=== PATIENT | male | born 1960 | race Caucasian/White ===

== ENCOUNTER 2018-07-20 06:53 | Emergency (ER) | payer OTHER, SELFPAY ==
[2018-07-20 07:03] VITALS: BP 170/94; PULSE 73; RESP 18; TEMP 36.3; O2SAT 99; BMI 28.8
--- NOTE | 2018-07-20 07:07 | ED_ITS ---
HPI - URI/Sore Throat General Chief Complaint: Upper Respiratory Symptoms Stated Complaint: states spitting up blood Time Seen by Provider: 07/20/18 07:00 Source: patient Mode of arrival: ambulatory Limitations: no limitations History of Present Illness HPI Narrative: 58-year-old otherwise healthy male here for evaluation of approximately 1 week of a dry cough. He states that yesterday he started having blood tinged sputum. He states that everything started approximately 1 week ago with a bilateral conjunctivitis. He was told by his doctor that it was ?viral ?was not placed on any antibiotics. Has never had any sinus congestion or ear pain. States that his was diagnosed with a ?bacterial infection ?in her lungs. He has not tried anything for the cough except for Sudafed. He is on a antihistamine. No chest pain. No recent car rides. Not on anticoagulation. No lower extremity swelling. Related Data Home Medications Medication Instructions Recorded Confirmed pseudoephedrine HCl [Sudafed] 30 mg PO Q4-6H PRN 07/20/18 07/20/18 Previous Rx's Medication Instructions Recorded hydrocodone-acetaminophen [[place]] 1 tab PO Q6HP PRN #10 tab 10/07/17 ondansetron [Zofran ODT] 4 mg SUBLINGUAL Q6HP PRN #10 odt 10/07/17 tamsulosin [Flomax] 0.4 mg PO QDAY #7 cap 10/07/17 azithromycin See Label Instructions .ROUTE 07/20/18 .COMPLEX #6 tab codeine-guaifenesin [Guaifenesin 10 ml PO Q4-6H PRN #118 ml 07/20/18 AC] Allergies Allergy/AdvReac Type Severity Reaction Status Date / Time No Known Allergies Allergy Uncoded 03/05/18 12:43 Review of Systems Constitutional Denies fatigue, Denies fever(s) and Denies headache(s) ENT Ears, Nose, Mouth, and Throat: Denies headache(s) Cardiovascular Denies chest pain and Denies dyspnea Respiratory Reports change in phlegm color, Reports chest congestion, Reports cough, Denies pain on inspiration, Denies dyspnea and Denies wheezing Gastrointestinal Gastrointestinal: Denies abdominal pain, Denies melena, Denies hematochezia, Denies change in stool character, Denies coffee ground emesis, Denies constipation, Denies diarrhea, Denies nausea and Denies vomiting Musculoskeletal Denies myalgias and Denies arthralgias Integumentary/Breasts Denies lesions and Denies rash Neurologic Denies headache(s) Endocrine Denies fatigue Hematologic/Lymphatic Denies easy bleeding and Denies easy bruising Allergic/Immunologic Denies wheezing PFSH Medical History BPH (benign prostatic hyperplasia) (Acute) Surgical History No pertinent past surgical history (Acute) Social History Smoking Status: Never smoker Exam Initial Vital Signs Initial Vital Signs: Vital Signs Temperature 97.3 F L 07/20/18 07:03 Pulse Rate 73 07/20/18 07:03 Respiratory Rate 18 07/20/18 07:03 Blood Pressure 170/94 H 07/20/18 07:03 Pulse Oximetry 99 07/20/18 07:03 Const General: cooperative, healthy appearing, comfortable, well developed, well groomed and No acute distress Orientation: alert, awake and oriented x3 HENMT Head: normal to inspection and normocephalic Chest Chest: normal inspection of the chest and normal palpation of entire chest wall Resp Effort & Inspection: normal respiratory effort and able to speak in complete sentences Cardio Rate: regular rate Rhythm: regular rhythm Heart Sounds: no murmurs Pulses: radial pulses present GI Inspection: non-distended Palpation: soft Skin Lesions: no lesions Rashes: no rashes Neuro General: alert, awake and oriented x3 Extrem General: capillary refill normal Psych Appearance: grossly normal and well kempt Course Orders Ordered: ED Orders 07/20/18 07:08 XR chest 1V Stat Vital Signs - 8 hr 07/20/18 07:03 Temperature 97.3 F L Pulse Rate 73 Respiratory Rate 18 Blood Pressure 170/94 H Pulse Oximetry 99 MDM - URI/Sore Throat Imaging Data Chest x-ray: Attestation: I personally reviewed and interpreted this imaging study as follows: My impression: No acute abnormality Normal size heart No pneumothorax MDM Narrative Medical decision making narrative: Patient clearly with respiratory symptoms. Low suspicion for PE. Is not hypoxic. He is not tachypneic. Has normal lung exam. Chest x-ray is negative. I suspect that the blood tinged sputum is from the irritation from all of the coughing. He has been on decongestants for approximately 1 week. Has not taken any cough suppressants. Plan will be is to discharge the patient home with a prescription for Robitussin with codeine. He was encouraged to take this for his symptoms for the next several days to see if this does not help. He he was also encouraged to continue his decongestants at home. Will also send home with a prescription for azithromycin. He was informed that if his symptoms do not improve in the next couple days or if his symptoms worsen that he could start taking this antibiotic. Patient was given return precautions. He expressed understanding and agreement with plan. Discharge Plan Departure Patient Disposition: Home Clinical Impression: Cough Instructions: Cough (Alternative Therapy), Cough Activity Restrictions/Additional Instructions: Recommend that you continue to take your antihistamine that you have been taking like we discussed. Also recommend that you start with the anti cough medicine that you were given today for the next several days to see if this does not improve your symptoms. If your symptoms do not improve or if they worsen the next couple days then fill the prescription for the antibiotics and start taking them as directed. Return to the emergency department for any new or worsening symptoms Prescriptions: New azithromycin 250 mg tablet See Label Instructions .ROUTE .COMPLEX Qty: 6 RF: 0 codeine-guaifenesin [Guaifenesin AC] 10-100 mg/5 mL liquid 10 ml PO Q4-6H PRN (Reason: cough) Qty: 118 RF: 0 No Action hydrocodone-acetaminophen [[place]] 5 MG/325 MG tablet 1 tab PO Q6HP PRNQty: 10 RF: 0 tamsulosin [Flomax] 0.4 MG capsule,extended release 24hr 0.4 mg PO QDAY Qty: 7 RF: 0 ondansetron [Zofran ODT] 4 MG tablet,disintegrating 4 mg Sublingual Q6HP PRNQty: 10 RF: 0 pseudoephedrine HCl [Sudafed] 30 mg Tablet 30 mg PO Q4-6H PRN (Reason: Congestion) RF: 0
--- NOTE | 2018-07-20 07:08 | DI.RAD.S_ITS ---
PROCEDURE: XR CHEST 1V INDICATIONS: spitting up blood TECHNIQUE: One view of the chest was acquired. COMPARISON: None. FINDINGS: Surgical changes and devices: None. Lungs and pleura: No pleural effusions or pneumothorax. Lungs are clear. Mediastinum: Mediastinal contours appear normal. Heart size is normal. Bones and chest wall: No suspicious bony lesions. Overlying soft tissues appear unremarkable. IMPRESSION: No acute cardiopulmonary pathology. Dictated by: Valentín Cordoba M.D. on 07/20/2018 at 9:33 Approved by: Valentín Cordoba M.D. on 07/20/2018 at 9:33
== END 2018-07-20 08:02 | disposition home or self-care (01) ==
PROVIDERS: Emergency Provider Emergency Medicine
DX: R05 Cough (principal)
CPT/HCPCS: 71045; 99282; 99283

== ENCOUNTER 2020-04-06 19:27 | Emergency (ER) | payer OTHER, SELFPAY ==
[2020-04-06 19:36] VITALS: BP 185/101; PULSE 84; RESP 16; TEMP 36.7; O2SAT 97; BMI 29.6
--- NOTE | 2020-04-06 19:37 | DI.RAD.S_ITS ---
PROCEDURE: XR FOOT RT MIN 3V INDICATIONS: fall w/ pain / deformity TECHNIQUE: 3 views of the foot were acquired. COMPARISON: None. FINDINGS: Bones: Mildly displaced fracture of the proximal 5th metatarsal with articular surface extension to the 5th tarsometatarsal joint. Soft tissues: No tibiotalar joint effusion. Achilles tendon appears normal. IMPRESSION: Proximal 5th metatarsal fracture. Dictated by: Greg Tracy M.D. on 04/06/2020 at 19:52 Approved by: Greg Tracy M.D. on 04/06/2020 at 19:53
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
[2020-04-06] MEDS: ACETAMINOPHEN 325 MG TABLET PO (19:50)
[2020-04-06] MEDS: IBUPROFEN 400 MG TABLET PO (19:50)
[2020-04-06 20:49] VITALS: BP 166/91; PULSE 98; RESP 14; O2SAT 98
== END 2020-04-06 20:52 | disposition home or self-care (01) ==
PROVIDERS: Emergency Provider Emergency Medicine
DX: S92.354A Nondisplaced fracture of fifth metatarsal bone, right foot, initial encounter for closed fracture (principal); V18.0XXA Pedal cycle driver injured in noncollision transport accident in nontraffic accident, initial encounter
CPT/HCPCS: 73630; 99283

== ENCOUNTER → 2021-08-09 09:10 | Outpatient (CLI) | payer OTHER, SELFPAY ==
[2021-08-09 11:53] LABS: COVID19 -Nasal RAPID Negative (Negative)
== END ==
PROVIDERS: Visit Provider Surgery
DX: Z01.812 Encounter for preprocedural laboratory examination (principal); Z20.822 Contact with and (suspected) exposure to COVID-19
CPT/HCPCS: 87635; C9803

== ENCOUNTER 2021-08-10 12:58 | Day surgery (SDC) | payer OTHER, SELFPAY ==
[2021-08-10] MEDS: LACTATED RINGERS 1,000 ML 200 ML IV (13:41)
[2021-08-10 13:43] VITALS: BP 157/88; PULSE 72; RESP 16; TEMP 36.5; O2SAT 100; BMI 29.5
--- NOTE | 2021-08-10 14:18 | PM.HP.1 ---
History of Present Illness History of Present Illness Date Patient Seen: 08/10/21 Time Patient Seen: 14:18 Chief complaint: SDC Narrative: The patient presents for colorectal sreening. Previous colonoscopy 10 years ago normal. No personal or family history of colon cancer. On further history denies any recent gastrointestinal symptoms. No nausea, vomiting, abdominal pain, loss of appetite, unexplained weight loss, change in bowel habits, diarrhea, constipation, melena, hematochezia, or bright red blood per rectum. Patient History Medical History BPH (benign prostatic hyperplasia) Surgical History No pertinent past surgical history Family & Social History Social History: household members spouse Tobacco & Substance use: Smoking Status Never smoker alcohol intake never alcohol intake frequency other Substance Use Type does not use Meds Home Medications and Allergies Home Medications Medication Instructions Recorded Confirmed Type sodium,potassium,mag sulfates 17.5 See Rx Instructions PO .COMPLEX 07/03/21 08/10/21 Rx gram-3.13 gram-1.6 gram oral soln #354 ml (Suprep Bowel Prep Kit) losartan 50 mg tablet 50 mg PO DAILY 08/10/21 08/10/21 History metoprolol succinate 50 mg 50 mg PO DAILY 08/10/21 08/10/21 History tablet,extended release 24 hr Allergies Allergy/AdvReac Type Severity Reaction Status Date / Time No Known Allergies Allergy Uncoded 08/10/21 13:59 Review of Systems Review of Systems ROS: Yes All systems reviewed with the patient and are negative except as otherwise documented Exam Vital Signs (past 8 hours): - 08/10/21 13:43 Temperature 97.7 F Pulse Rate 72 Respiratory Rate 16 Blood Pressure 157/88 H Pulse Oximetry 100 Oxygen Delivery Method Room Air Narrative Exam Narrative: Constitutional-he is oriented to person, place and time. No apparent distress Cardiovascular- regular rate, no peripheral edema Pulmonary-unlabored respiratory effort, no audible wheezing Abdominal-soft, non-tender, non-distended Musculoskeletal-no cyanosis or clubbing Neurological-nonfocal, normal strength throughout Skin-warm and dry Assessment & Plan Assessment & Plan narrative: The patient requires colorectal screening and colonoscopy is recommended. Technical details were discussed. Risks, benefits, alternatives explained. Risks including but not limited to myocardial infarction, aspiration, bleeding, pain, missed lesion, incomplete examination, need for further radiographic studies, colonic perforation, and need for major abdominal surgery were discussed. All questions were answered to their satisfaction, and they are in agreement with this plan. Time Spent With Patient Critical Care time: I spent a total of [] minutes of critical care time on this patient's care today; this time is exclusive of procedural time.
[2021-08-10] MEDS: MIDAZOLAM 5 MG/5 ML VIAL IV (14:26)
[2021-08-10] MEDS: fentaNYL 250 MCG/5 ML INJ IV (14:26)
--- NOTE | 2021-08-10 14:42 | PM.OP.ENDO ---
Operative Date/Time/Diagnoses Date of procedure: 08/10/21 Time of procedure: 14:42 Pre-op diagnosis: screening colonoscopy Post-op diagnosis: same Procedure & Clinicians Study performed: Colonoscopy Same procedure as scheduled: Yes Indications: Screening Surgeon: Remington Valverde Procedure Notes Procedure in detail: Medications: Conscious sedation using 5mg IV midazolam and 200mcg IV of fentanyl The history and physical was performed/updated and the patient is ASA class is 2. The procedure was discussed in detail with the patient. Potential risks complications including infection, bleeding, missed diagnosis, perforation, need for surgery, and were explained. Their questions were answered and informed consent was obtained. Patient was brought to the procedure room and placed standard monitoring equipment. The patient's vital signs were monitored continuously throughout the entire procedure. Prior to starting time-out was performed. The patient was placed in the left lateral recumbent position. Procedural sedation was administered. Examination began with a thorough inspection of the perianal area there was no evidence of fissures, fistulae, external hemorrhoids or cutaneous malignancy. The colonoscopy scope was then placed into the anal canal and was advanced to the cecum, which was identified by the ileocecal valve, the appendiceal orifice and the confluence of the taenia. The scope was then slowly withdrawn examining colon thoroughly in all directions, irrigating it of any residual stool. FINDINGS 1. No masses or polyps 2. Sigmoid diverticulosis 3. Grade 1 internal The patient tolerated the procedure well. They will be discharged once criteria are met. The prep was of good/excellent quality. The withdrawl time was 6 minutes. The sedation time was 18 minutes. Specimen(s): none sent Complications: none Impression: Normal colonoscopy Post-procedure Recommendations: Colonscopy in 10 years Disposition: same day surgery
[2021-08-10 14:43] VITALS: BP 160/72; PULSE 71; RESP 10; TEMP 36.8; O2SAT 96
--- NOTE | 2021-08-10 14:47 | SUR.PHASEI ---
Received to PACU after colonoscopy with sedation. Report from MELLISSA Moore.
[2021-08-10 14:48] VITALS: BP 139/59; PULSE 71; RESP 10; O2SAT 96
[2021-08-10 14:53] VITALS: BP 122/56; PULSE 67; RESP 10; O2SAT 98
[2021-08-10 14:58] VITALS: BP 132/91; PULSE 83; RESP 12; O2SAT 98
[2021-08-10 15:00] VITALS: BP 156/80; PULSE 70; RESP 12; TEMP 36.8; O2SAT 98
== END 2021-08-10 15:14 | disposition home or self-care (01) ==
PROVIDERS: Referring Provider Surgery; Visit Provider Surgery
PROC: 0DJD8ZZ Inspection of Lower Intestinal Tract, Via Natural or Artificial Opening Endoscopic (ICD-10-PCS; CPT 45378; principal; 2021-08-10 14:30)
DX: Z12.11 Encounter for screening for malignant neoplasm of colon (principal); K57.30 Diverticulosis of large intestine without perforation or abscess without bleeding; K64.0 First degree hemorrhoids; N40.0 Benign prostatic hyperplasia without lower urinary tract symptoms
CPT/HCPCS: G0121; 99152; J2250; J3010

== ENCOUNTER 2022-04-20 19:34 | Emergency (ER) | payer OTHER, SELFPAY ==
[2022-04-20 19:42] VITALS: BP 161/94; PULSE 74; RESP 18; TEMP 35.9; O2SAT 97; BMI 29.6
--- NOTE | 2022-04-20 21:30 | ED.GENADULT ---
HPI - General Adult General Chief complaint: Urogenital-Male Stated complaint: Possible kidney stones/ ABD pain Time Seen by Provider: 04/20/22 21:26 Source: patient Mode of arrival: Ambulatory Limitations: no limitations History of Present Illness HPI narrative: 62-year-old male who has had a kidney stone in the past who is here for evaluation of right-sided flank discomfort. Symptoms have been going on for less than 24 hours. They are intermittent in nature. He denies any urinary symptoms. No fevers. No nausea vomiting. No change in bowel habits. He states that his symptoms to feel somewhat similar to when he had the last kidney stone although certainly not as bad. He does think that the pain gets worse when he moves and touches the area. There is no rash over the area. No specific trauma. Related Data Home Medications Medication Instructions Recorded Confirmed losartan 50 mg tablet 50 mg PO DAILY 08/10/21 08/10/21 metoprolol succinate 50 mg 50 mg PO DAILY 08/10/21 08/10/21 tablet,extended release 24 hr Previous Rx's Medication Instructions Recorded sodium,potassium,mag sulfates 17.5 See Rx Instructions PO .COMPLEX 07/03/21 gram-3.13 gram-1.6 gram oral soln #354 ml (Suprep Bowel Prep Kit) Allergies Allergy/AdvReac Type Severity Reaction Status Date / Time No Known Allergies Allergy Uncoded 08/10/21 13:59 Review of Systems Constitutional Constitutional: Denies fever(s) Gastrointestinal Gastrointestinal: Reports system reviewed and no additional complaints, except as documented Genitourinary Genitourinary: Reports system reviewed and no additional complaints, except as documented Musculoskeletal Musculoskeletal: Reports system reviewed and no additional complaints, except as documented Integumentary/Breasts Skin/Breast: Reports system reviewed and no additional complaints, except as documented Patient History Medical History BPH (benign prostatic hyperplasia) Surgical History No pertinent past surgical history Social History household members: spouse Smoking Status: Never smoker alcohol intake: never Smoking Status: Never smoker alcohol intake frequency: other Substance Use Type: does not use Exam Initial Vital Signs Initial Vital Signs: Vital Signs Temperature 96.6 F L 04/20/22 19:42 Pulse Rate 74 04/20/22 19:42 Respiratory Rate 18 04/20/22 19:42 Blood Pressure 161/94 H 04/20/22 19:42 Pulse Oximetry 97 04/20/22 19:42 [facility] Head: normal to inspection and normocephalic Resp Auscultation: clear to auscultation bilaterally Cardio Rate: regular rate Rhythm: regular rhythm GI Inspection: normal to inspection Palpation: soft, No firm and No tender Back/Spine/Pelvis Back: CVA tenderness right Skin General: no rashes or lesions noted Neuro General: patient alert, patient awake and moves all extremities Extrem General: normal to inspection and capillary refill normal Psych Appearance: grossly normal and well kempt Course Orders Ordered: ED Orders 04/20/22 21:31 CT kidney ureter bladder (KUB) Stat 04/20/22 21:57 Complete Blood Count AUTO DIFF Stat Comprehensive Metabolic Panel Stat Lipase Stat Vital Signs Vital signs: Vital Signs - 8 hr 04/20/22 19:42 04/20/22 23:18 Temperature 96.6 F L Pulse Rate 74 64 Respiratory Rate 18 18 Blood Pressure 161/94 H 146/77 H Pulse Oximetry 97 98 Medical Decision Making Lab Data Lab results reviewed: Yes I reviewed the patient's lab results. Result diagrams: 04/20/22 21:57 04/20/22 21:57 Labs: Lab Results 04/20/22 04/20/22 Range/Units 21:57 21:57 WBC 7.1 (4.5-11.0) X10^3/uL RBC 4.52 (4.5-5.9) X10^6/uL Hgb 13.9 (13.5-17.5) g/dL Hct 38.7 L (41-53) % MCV 85.7 (80-100) fL MCH 30.8 (26-34) PG MCHC 35.9 (30-36) % RDW 13.4 (11.6-14.8) % Plt Count 158 (150-400) X10^3/uL Neut % (Auto) 69.0 (50-75) % Lymph % (Auto) 15.7 L (25-40) % [place] % (Auto) 10.8 (3-14) % Eos % (Auto) 4.3 H (2-4) % Baso % (Auto) 0.2 (0-2) % Neut # (Auto) 4900 (6729-9539) /uL Lymph # (Auto) 1100 (2231-5153) /uL Star[place] # (Auto) 800 (0-900) /uL Eos # (Auto) 300 (0-450) /uL Baso # (Auto) 0 (0-100) /uL Sodium 139 (137-145) mmol/L Potassium 4.0 (3.4-5.1) mmol/L Chloride 106 (98-107) mmol/L Carbon Dioxide 27 (22-32) mmol/L BUN 18 (9-20) mg/dL Creatinine 0.98 (0.66-1.25) mg/dL Estimated GFR > 60 (>60) mL/min BUN/Creatinine Ratio 18.4 (6-22) Glucose 106 (80-110) mg/dL Calcium 8.4 (8.4-10.2) mg/dL Total Bilirubin 0.5 (0.2-1.3) mg/dL AST 43 (17-59) IU/L ALT 40 (<50) IU/L Alkaline Phosphatase 91 (38-126) U/L Total Protein 6.7 (6.3-8.2) g/dL Albumin 3.8 (3.5-5.0) g/dL Globulin 2.9 (1.7-4.1) g/dL Albumin/Globulin Ratio 1.3 (1.0-2.8) Lipase 90 (23-300) U/L Urine Dip Bedside Urine Glucose Negative Bedside Urine Bilirubin - Negative Bedside Urine Ketone - Negative Urine Specific [place] 1.020 Bedside Urine Occult Blood - Negative Bedside Urine Protein - Negative Bedside Urine Urobilinogen - Negative Bedside Urine Nitrite - Negative Bedside Urine Leukocytes - Negative Esterase Point of care testing: Urine Dip Bedside Urine Glucose Negative Bedside Urine Bilirubin - Negative Bedside Urine Ketone - Negative Urine Specific [place] 1.020 Bedside Urine Occult Blood - Negative Bedside Urine Protein - Negative Bedside Urine Urobilinogen - Negative Bedside Urine Nitrite - Negative Bedside Urine Leukocytes - Negative Esterase Imaging Data CT scan - abdomen/pelvis: Radiologist's Impression: [address] [address] [address] Scan Report Signed Patient: Cornelius Gonzales MR#: [id number] : 1960 Acct:[id number] Age/Sex: 62 / M Date of Service: 04/20/22 Loc: ED Accession Number: [id number] ?? Procedure: CT kidney ureter bladder (KUB) Ordering Provider: Cornelius Richmond D.O. PROCEDURE:? CT KIDNEY URETER BLADDER (KUB) ? INDICATIONS:? R flank pain eval for stone ? TECHNIQUE:? Axial sections were acquired from the lung bases to the pubic symphysis.? Coronal and sagittal reformats were performed.? For radiation dose reduction, the following was used: ?automated exposure control, adjustment of mA and/or kV according to patient size.? ? COMPARISON:? [facility], CT, KIDNEY/ URETER/BLADDER, 10/07/2017, 7:23. ? FINDINGS:? Image quality:? Excellent.? ? Lung bases:? Bibasilar dependent atelectasis is seen . Heart:? No significant findings. ? URINARY: Right Kidney:? No stones or hydronephrosis. Right Ureter:? No hydroureter. ? Left Kidney:? No stones or hydronephrosis.? Well-circumscribed hypodensities are noted in upper pole of left kidney likely represent renal cysts. Left Ureter:? No hydroureter. ? Bladder:? Normal wall thickness. No stones. ? ? ? ABDOMEN: Liver:? Unremarkable.? ? Gallbladder:? Unremarkable. Biliary ducts:? Unremarkable.? ? Pancreas:? Unremarkable.? ? Spleen:? Unremarkable.? ? Adrenal Glands:? Unremarkable.? ? ? Stomach and Bowel:? Stomach, small bowel loops, and colon are unremarkable.? Appendix is visualized and is within normal limits.? Mild sigmoid diverticulosis is seen.? No colonic wall thickening or pericolonic fat stranding. Peritoneum:? No abnormal intraperitoneal fluid.? No free air.? ? Ventral Wall: ? No hernia.? Abdominal Nodes:? No enlarged retroperitoneal or mesenteric lymph nodes.? Vessels:? Aorta and inferior vena cava are normal in size.? ? PELVIS: Pelvic Organs:? Unremarkable.? ? Pelvic Nodes: Unremarkable. Miscellaneous:? Right inguinal hernia is noted containing fat only. ? Bones:? No suspicious bony lesion.? No acute vertebral body compression fractures. ? IMPRESSION:? ? 1. No renal stones or hydronephrosis.? Suggestion of small left renal cysts.? Normal appearing bilateral ureters and urinary bladder. 2. Normal appendix.? No bowel obstruction or abnormal bowel wall thickening.? Sigmoid diverticulosis without evidence of acute diverticulitis.? No free fluid or free air.? Dictated by: Valentín Cordoba M.D. on 04/20/2022 at 21:50 ? ? Approved by: Valentín Cordoba M.D. on 04/20/2022 at 21:56?? MDM Narrative Medical decision making narrative: CT scan does not show any signs of an acute abdominal pathology to include kidney stones. His labs are unremarkable. Kidney functions unremarkable. No indication of urinary tract infection. Low suspicion for pyelonephritis. Given the fact that his symptoms are reproducible with movement or palpation I have a higher suspicion this is musculoskeletal in etiology. There is no skin rash or the area that would make you concern for zoster. Did discuss conservative measures. We can hold on further workup for now. Patient is safe for discharge home. Discussed return precaution. He expressed understanding and agreement. Discharge Plan Departure Patient Disposition: Home Clinical Impression: Acute right flank pain Instructions: DI for Muscle Strain Activity Restrictions/Additional Instructions: Continue to take all of your medications as directed. He can try Tylenol or ibuprofen for any discomfort. Return to the emergency department for any new or worsening symptoms. Prescriptions: No Action Suprep Bowel Prep Kit 17.5-3.13-1.6 gram recon soln See Rx Instructions PO .COMPLEX Qty: 354 0RF Rx Instructions: DILUTE; drink full amount early evening before AND next morning at least 2 hr before procedure; follow w 32 oz. water PO losartan 50 mg tablet 50 mg PO DAILY 0RF metoprolol succinate 50 mg tablet extended release 24 hr 50 mg PO DAILY 0RF
--- NOTE | 2022-04-20 21:31 | DI.CT.S_ITS ---
PROCEDURE: CT KIDNEY URETER BLADDER (KUB) INDICATIONS: R flank pain eval for stone TECHNIQUE: Axial sections were acquired from the lung bases to the pubic symphysis. Coronal and sagittal reformats were performed. For radiation dose reduction, the following was used: automated exposure control, adjustment of mA and/or kV according to patient size. COMPARISON: [facility], CT, KIDNEY/ URETER/BLADDER, 10/07/2017, 7:23. FINDINGS: Image quality: Excellent. Lung bases: Bibasilar dependent atelectasis is seen . Heart: No significant findings. URINARY: Right Kidney: No stones or hydronephrosis. Right Ureter: No hydroureter. Left Kidney: No stones or hydronephrosis. Well-circumscribed hypodensities are noted in upper pole of left kidney likely represent renal cysts. Left Ureter: No hydroureter. Bladder: Normal wall thickness. No stones. ABDOMEN: Liver: Unremarkable. Gallbladder: Unremarkable. Biliary ducts: Unremarkable. Pancreas: Unremarkable. Spleen: Unremarkable. Adrenal Glands: Unremarkable. Stomach and Bowel: Stomach, small bowel loops, and colon are unremarkable. Appendix is visualized and is within normal limits. Mild sigmoid diverticulosis is seen. No colonic wall thickening or pericolonic fat stranding. Peritoneum: No abnormal intraperitoneal fluid. No free air. Ventral Wall: No hernia. Abdominal Nodes: No enlarged retroperitoneal or mesenteric lymph nodes. Vessels: Aorta and inferior vena cava are normal in size. PELVIS: Pelvic Organs: Unremarkable. Pelvic Nodes: Unremarkable. Miscellaneous: Right inguinal hernia is noted containing fat only. Bones: No suspicious bony lesion. No acute vertebral body compression fractures. IMPRESSION: 1. No renal stones or hydronephrosis. Suggestion of small left renal cysts. Normal appearing bilateral ureters and urinary bladder. 2. Normal appendix. No bowel obstruction or abnormal bowel wall thickening. Sigmoid diverticulosis without evidence of acute diverticulitis. No free fluid or free air. Dictated by: Valentín Cordoba M.D. on 04/20/2022 at 21:50 Approved by: Valentín Cordoba M.D. on 04/20/2022 at 21:56
[2022-04-20 22:06] LABS: Add Manual Diff / Slide Review NO; Basophils Absolute Auto 0 /uL (0-100); Basophils Percent Auto 0.2 % (0-2); Eosinophils Absolute Auto 300 /uL (0-450); Eosinophils Percent Auto 4.3 % (2-4); Hematocrit 38.7 % (41-53); Hemoglobin 13.9 g/dL (13.5-17.5); Lymphocytes Absolute Auto 1100 /uL (1100-4500); Lymphocytes Percent Auto 15.7 % (25-40); Mean Corpuscular HGB Conc 35.9 % (30-36); Mean Corpuscular Hemoglobin 30.8 PG (26-34); Mean Corpuscular Volume 85.7 fL (80-100); Monocytes Absolute Auto 800 /uL (0-900); Monocytes Percent Auto 10.8 % (3-14); Neutrophils Absolute Auto 4900 /uL (1500-7000); Platelet Count 158 X10^3/uL (150-400); Red Blood Cell Count 4.52 X10^6/uL (4.5-5.9); Red Cell Distribution Width 13.4 % (11.6-14.8); White Blood Cell Count 7.1 X10^3/uL (4.5-11.0)
[2022-04-20 22:16] LABS: Alanine Aminotransferase 40 IU/L (<50); Albumin 3.8 g/dL (3.5-5.0); Albumin Globulin Ratio 1.3 (1.0-2.8); Alkaline Phosphatase 91 U/L (38-126); Aspartate Aminotransferase 43 IU/L (17-59); BUN Creatinine Ratio 18.4 (6-22); Bilirubin Total 0.5 mg/dL (0.2-1.3); Blood Urea Nitrogen 18 mg/dL (9-20); Calcium 8.4 mg/dL (8.4-10.2); Carbon Dioxide 27 mmol/L (22-32); Chloride 106 mmol/L (98-107); Estimated Glomerular Filt Rate > 60 mL/min (>60); Globulin 2.9 g/dL (1.7-4.1); Glucose 106 mg/dL (80-110); HEMOLYSIS < 15 (0-50); Lipase 90 U/L (23-300); Sodium 139 mmol/L (137-145); Total Protein 6.7 g/dL (6.3-8.2)
[2022-04-20 23:18] VITALS: BP 146/77; PULSE 64; RESP 18; O2SAT 98
== END 2022-04-20 23:21 | disposition home or self-care (01) ==
PROVIDERS: Emergency Provider Emergency Medicine
DX: R10.9 Unspecified abdominal pain (principal)
CPT/HCPCS: 36415; 74176; 80053; 81003; 83690; 85025; 99283; 99284

== ENCOUNTER 2024-07-30 18:21 | Emergency (ER) | payer OTHER, SELFPAY ==
[2024-07-30 18:26] VITALS: BP 163/82; PULSE 64; RESP 16; TEMP 36.2; O2SAT 98; BMI 30.7
[2024-07-30 20:58] VITALS: BP 113/62; PULSE 59; O2SAT 97
[2024-07-30 21:00] VITALS: BP 111/65; PULSE 60; RESP 18; O2SAT 97
[2024-07-30 21:30] VITALS: BP 117/71; PULSE 58; O2SAT 96
--- NOTE | 2024-07-30 22:00 | ED.HA ---
HPI - Headache General Chief Complaint: Headache Stated Complaint: stabbing pains lt side of head x 2 days Time Seen by Provider: 07/30/24 22:00 History of Present Illness HPI Narrative: Patient is a 64-year-old male history of borderline diabetes, hypertension recently started on Jardiance presenting today with headache. He reports that he has pain in 1 specific spot on left side of his head the last for a couple seconds and comes every 5-10 minutes. This pain has been ongoing for last 2-3 days. He has not had headaches previously. He has not taken any Tylenol or ibuprofen. He denies any fever or neck pain. No other symptoms. He has no numbness tingling or weakness. He has no balance issues or nausea or vomiting. He has had many family members have a glioblastoma is in the past. Related Data Home Medications Medication Instructions Recorded Confirmed losartan 50 mg tablet 50 mg PO DAILY 08/10/21 08/10/21 metoprolol succinate 50 mg 50 mg PO DAILY 08/10/21 08/10/21 tablet,extended release 24 hr Previous Rx's Medication Instructions Recorded sodium,potassium,mag sulfates 17.5 See Rx Instructions PO .COMPLEX 07/03/21 gram-3.13 gram-1.6 gram oral soln #354 mL (Suprep Bowel Prep Kit) Allergies Allergy/AdvReac Type Severity Reaction Status Date / Time No Known Allergies Allergy Uncoded 08/10/21 13:59 Patient History Medical History BPH (benign prostatic hyperplasia) Surgical History No pertinent past surgical history Social History household members: spouse Smoking Status: Never smoker alcohol intake: never Smoking Status: Never smoker alcohol intake frequency: other Substance Use Type: does not use Exam Initial Vital Signs Initial Vital Signs: Vital Signs Temperature 97.1 F L 07/30/24 18:26 Pulse Rate 64 07/30/24 18:26 Respiratory Rate 16 07/30/24 18:26 Blood Pressure 163/82 H 07/30/24 18:26 Pulse Oximetry 98 07/30/24 18:26 Oxygen Delivery Method Room Air 07/30/24 18:26 GENERAL: Alert pleasant 64-year-old male and in no acute distress. HEENT: Head atraumatic,EOMI, pupils reactive, face symmetric, moist mucous membranes NECK: Supple no meningeal signs CARDIOVASCULAR: Regular rate and rhythm without murmurs, rubs or gallops. RESPIRATORY: Breath sounds equal bilaterally, no wheezes rales or rhonchi. ABDOMEN: Soft, nontender. Normoactive bowel sounds all 4 quadrants. No guarding or rebound. EXTREMITIES: Normal range of motion, no clubbing or edema. Neurovascularly intact NEUROLOGICAL: Alert and oriented x4.Normal gait and speech. Cranial nerves II through XII grossly intact. Good [id number], good [id number], strength equal bilaterally, no dysarthria or aphasia, sensation in tact to soft touch bilaterally, no visual changes, no facial droop SKIN: Warm, dry, no laceration, no petechiae, no rashes or lesions. Course Orders Ordered: ED Orders 07/30/24 22:07 CT head/brain wo con Stat Vital Signs Vital signs: Vital Signs - 8 hr 07/30/24 20:58 07/30/24 20:58 07/30/24 21:00 Pulse Rate 59 L Respiratory Rate Blood Pressure 113/62 111/65 Pulse Oximetry 97 Oxygen Delivery Method 07/30/24 21:00 07/30/24 21:30 07/30/24 21:30 Pulse Rate 60 58 L Respiratory Rate 18 Blood Pressure 117/71 Pulse Oximetry 97 96 Oxygen Delivery Method 07/30/24 23:29 Pulse Rate 57 L Respiratory Rate 16 Blood Pressure 115/69 Pulse Oximetry 97 Oxygen Delivery Method Room Air MDM - Headache Lab Data Labs: Point of Care Testing Glucose POC [address] scan - head: Radiologist's Impression: PROCEDURE: CT HEAD/BRAIN WO CON INDICATIONS: headache left side TECHNIQUE: Noncontrast 4.5 mm thick angled axial sections acquired from the foramen magnum to the vertex, with coronal and sagittal reformats. For radiation dose reduction, the following was used: automated exposure control, adjustment of mA and/or kV according to patient size. COMPARISON: None. FINDINGS: Image quality: Diagnostic. CSF spaces: Basal cisterns are patent. No extra-axial fluid collections. Ventricles are normal in size and shape. Brain: No midline shift. No intracranial masses or hemorrhage. Hoyt-white matter interface is normal. Skull and face: Calvarium and visualized facial bones are intact, without suspicious lesions. 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 Sinuses: Visualized sinuses and mastoids are clear. IMPRESSION: No CT evidence of acute intracranial process. Dictated by: Na Haywood M.D. on 07/30/2024 at 22:54 MDM Narrative Medical decision making narrative: Patient is 64-year-old male history of hypertension diabetes presenting today with headache. He reports having a headache lasting 5 seconds or less frequently over the last 2 days. It is in the same spots. This does not normally happened to him. On exam he has no focal deficits. He has no difficulty ambulating no nausea or vomiting or other concerning symptoms. However multiple family members have previously had glioblastoma. Fortunately head CT does not show any evidence of mass and exam is not concerning. He has a glucose of 81 He really isn't having any other concerning signs or symptoms. Reports that he just saw his primary care provider who put him on the Jardiance and just had a bunch of blood work done. At this time vitals are stable. Patient was offered Tylenol or Motrin but declines. At this time no further workup indicated in the ED. Discharge Plan Departure Patient Disposition: Home Clinical Impression: Headache Instructions: DI for Headache Activity Restrictions/Additional Instructions: *You have been diagnosed with headache *What to do: At this time head CT is negative. Your headache may or may not be related to medication it is okay to take Tylenol or ibuprofen as needed *Continue to take medications as directed *Follow up with your primary care provider in 2-3 days or call [phone] *Return to ER if you should have worsening headache nausea vomiting numbness tingling weakness [or] any new, worsening or concerning symptoms Prescriptions: No Action Suprep Bowel Prep Kit 17.5-3.13-1.6 gram recon soln See Rx Instructions PO .COMPLEX Qty: 354 0RF Rx Instructions: DILUTE; drink full amount early evening before AND next morning at least 2 hr before procedure; follow w 32 oz. water PO losartan 50 mg tablet 50 mg PO DAILY metoprolol succinate 50 mg tablet extended release 24 hr 50 mg PO DAILY Referrals: ProviderSamm [Primary Care Provider] - Stand Alone Forms: Patient Portal/API
--- NOTE | 2024-07-30 22:07 | DI.CT.S_ITS ---
PROCEDURE: CT HEAD/BRAIN WO CON INDICATIONS: headache left side TECHNIQUE: Noncontrast 4.5 mm thick angled axial sections acquired from the foramen magnum to the vertex, with coronal and sagittal reformats. For radiation dose reduction, the following was used: automated exposure control, adjustment of mA and/or kV according to patient size. COMPARISON: None. FINDINGS: Image quality: Diagnostic. CSF spaces: Basal cisterns are patent. No extra-axial fluid collections. Ventricles are normal in size and shape. Brain: No midline shift. No intracranial masses or hemorrhage. Hoyt-white matter interface is normal. Skull and face: Calvarium and visualized facial bones are intact, without suspicious lesions. 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 Sinuses: Visualized sinuses and mastoids are clear. IMPRESSION: No CT evidence of acute intracranial process. Dictated by: Na Haywood M.D. on 07/30/2024 at 22:54 Approved by: Na Haywood M.D. on 07/30/2024 at 22:58
[2024-07-30 23:29] VITALS: BP 115/69; PULSE 57; RESP 16; O2SAT 97
== END 2024-07-30 23:30 | disposition home or self-care (01) ==
PROVIDERS: Emergency Provider Emergency Medicine
DX: R51.9 Headache, unspecified (principal)
CPT/HCPCS: 70450; 82962; 99282; 99284